=== PATIENT | male | born 1960 | race American Indian/Alaskan Native ===

== ENCOUNTER 2023-04-10 07:58 | Emergency (ER) | payer MEDICARE, OTHER ==
[2023-04-10] MEDS ORDERED: Sodium Chloride 0.9% 1,000 ML IV ONE ×3 (08:23→10:51)
[2023-04-10] MEDS ORDERED: Ondansetron 4 MG/2 ML SDV IVPUSH ONE (08:23)
[2023-04-10] MEDS ORDERED: Albuterol/Ipratropium 3.0-0.5 MG/3 ML Neb Soln NEB ONE (08:31)
[2023-04-10 08:56] LABS: BASOPHILS PERCENT AUTO 0.2 % (0.0-1.0); HEMATOCRIT 44.4 % (40.0-54.0); LYMPHOCYTES PERCENT AUTO 11.3 % (20.5-50.1); MEAN CORPUSCULAR HEMOGLOBIN 30.2 pg (27.0-34.0); MEAN CORPUSCULAR HGB CONC 33.8 g/dL (33.0-35.0); MEAN CORPUSCULAR VOLUME 89.3 fL (80-100); MONOCYTES PERCENT AUTO 3.6 % (2-8); NEUTROPHILS PERCENT AUTO 84.9 % (42.2-75.2); PLATELET COUNT,PLT 340 10^3/uL (150-450); RED BLOOD CELL COUNT 4.97 10^6/uL (4.6-6.2); WHITE BLOOD CELL COUNT,WBC 10.6 10^3/uL (5.0-10.0)
[2023-04-10 09:08] LABS: LACTIC ACID 2.9 mmol/L (0.4-2.0)
[2023-04-10 09:15] LABS: A/G RATIO 0.9; ALANINE AMINOTRANSFERASE,ALT 40 U/L (16-63); ALBUMIN 3.7 g/dL (3.4-5.0); ALKALINE PHOSPHATASE 131 U/L (46-116); ANION GAP 15.1 mEq/L (7-13); ASPARTATE AMNIOTRANSFERASE,AST 23 U/L (15-37); BILIRUBIN TOTAL 0.7 mg/dL (0.2-1.0); BLOOD UREA NITROGEN,BUN 10 mg/dL (7-18); BUN/CREATININE RATIO 7.6 (No establ ref range); C-REACTIVE PROTEIN 1.5 mg/dL (0.0-0.9); CALCIUM 9.1 mg/dL (8.5-10.1); CARBON DIOXIDE,CO2 27 mmol/L (21-32); CHLORIDE,CL 105 mmol/L (98-107); CREATININE 1.32 mg/dL (0.70-1.30); EST CRCL DRUG DOSING (CG) 60.21 mL/min; GLUCOSE RANDOM 130 mg/dL (70-99); LIPASE 30 U/L (73-393); MAGNESIUM 1.9 mg/dL (1.8-2.4); POTASSIUM,K 4.1 mmol/L (3.5-5.1); PROTEIN TOTAL,TP 7.9 g/dL (6.4-8.2); SODIUM,NA 143 mmol/L (136-145)
[2023-04-10 09:17] LABS: ESTIMATED GFR 60 mL/min (>=60); ETHANOL BLOOD MEDICAL < 3 mg/dL (0)
[2023-04-10 10:19] LABS: APPEARANCE,URINE CLEAR (CLEAR); BILIRUBIN,URINE NEGATIVE (NEGATIVE); COLOR,URINE YELLOW (YELLOW); GLUCOSE,URINE NEGATIVE (NEGATIVE); KETONES,URINE >=160 (NEGATIVE); LEUKOCYTE ESTERASE,URINE NEGATIVE (NEGATIVE); NITRITE,URINE NEGATIVE (NEGATIVE); OCCULT BLOOD,URINE NEGATIVE (NEGATIVE); PH,URINE 8.5 (5.0-9.0); PROTEIN,URINE NEGATIVE (NEGATIVE)
[2023-04-10] MEDS ORDERED: predniSONE 20 MG Tab PO ONE (10:20)
[2023-04-10 10:21] LABS: AMPHETAMINES,URINE NEGATIVE (NEGATIVE); BARBITURATES,URINE NEGATIVE (NEGATIVE); BENZODIAZEPINE,URINE NEGATIVE (NEGATIVE); MDMA (ECSTASY), URINE NEGATIVE (NEGATIVE); METHADONE,URINE NEGATIVE (NEGATIVE); METHAMPHETAMINES,URINE NEGATIVE (NEGATIVE); OPIATES,URINE NEGATIVE (NEGATIVE); OXYCODONE,URINE NEGATIVE (NEGATIVE); PHENCYCLIDINE,URINE NEGATIVE (NEGATIVE); TCA,URINE NEGATIVE (NEGATIVE)
== END 2023-04-10 11:43 | disposition home or self-care (01) ==
LOC: MERGE 07:58 → DL.ED 07:58
DX: E86.0 Dehydration (principal); J20.9 Acute bronchitis, unspecified; Z20.822 Contact with and (suspected) exposure to COVID-19; Z79.899 Other long term (current) drug therapy; Z79.82 Long term (current) use of aspirin; Z88.0 Allergy status to penicillin
CPT/HCPCS: 36415; 71046; 80053; 80305-QW; 80307; 81003; 82947; 83605; 83690; 83735; 84484; 85025; 86140; 87804; 93005; 94640; 96361; 96374; 99285-25; J2405; J7030; J7512; J7620-GY; U0002

== ENCOUNTER 2023-06-05 21:08 | Emergency (ER) | payer OTHER ==
[~2023-06-05 21:08] MED LIST: Iopamidol 755 Mg/ML 100 ML Bottle IV ONE; Sodium Chloride 0.9% 10 ML Syringe FLUSH PRN
[2023-06-05] MEDS ORDERED: fentaNYL 50 MCG/HR Transdermal Patch TRDERM SCH (21:15)
[2023-06-05 21:18] LABS: BASOPHILS PERCENT AUTO 0.1 % (0.0-1.0); EOSINOPHILS PERCENT AUTO 0.1 % (1.0-3.0); HEMATOCRIT 41.5 % (40.0-54.0); HEMOGLOBIN 14.1 g/dL (14.0-18.0); LYMPHOCYTES PERCENT AUTO 7.6 % (20.5-50.1); MEAN CORPUSCULAR HEMOGLOBIN 30.5 pg (27.0-34.0); MEAN CORPUSCULAR VOLUME 89.6 fL (80-100); MONOCYTES PERCENT AUTO 3.9 % (2-8); NEUTROPHILS PERCENT AUTO 88.3 % (42.2-75.2); PLATELET COUNT,PLT 356 10^3/uL (150-450); RED BLOOD CELL COUNT 4.63 10^6/uL (4.6-6.2); WHITE BLOOD CELL COUNT,WBC 16.1 10^3/uL (5.0-10.0)
[2023-06-05] MEDS ORDERED: Sodium Chloride 0.9% 1,000 ML IV ONE (21:26)
[2023-06-05] MEDS ORDERED: fentaNYL 100 MCG/2 ML SDV IVPUSH ONE ×3 (21:29→22:21)
[2023-06-05] MEDS ORDERED: Vancomycin 2 GM in Sodium Chloride 0.9% 500 ML IV ONE (21:32)
[2023-06-05 21:36] LABS: ALBUMIN 3.2 g/dL (3.4-5.0); ANION GAP 16.9 mEq/L (7-13); BILIRUBIN TOTAL 0.4 mg/dL (0.2-1.0); BUN/CREATININE RATIO 10.2 (No establ ref range); CALCIUM 8.7 mg/dL (8.5-10.1); CREATININE 1.08 mg/dL (0.70-1.30); EST CRCL DRUG DOSING (CG) 73.6 mL/min; POTASSIUM,K 3.9 mmol/L (3.5-5.1); PROTEIN TOTAL,TP 6.8 g/dL (6.4-8.2)
[2023-06-05 21:45] LABS: A/G RATIO 0.89
[2023-06-05 21:46] LABS: LACTIC ACID 2.1 mmol/L (0.4-2.0)
[2023-06-05] MEDS ORDERED: Morphine 2 MG/ML SYRINGE IVPUSH ONE (23:24)
== END 2023-06-06 00:49 ==
LOC: DL.ED 21:08
DX: K80.60 Calculus of gallbladder and bile duct with cholecystitis, unspecified, without obstruction (principal); Z88.0 Allergy status to penicillin; Z79.82 Long term (current) use of aspirin; Z79.899 Other long term (current) drug therapy
CPT/HCPCS: 36415; 71260; 74177; 80053; 83605; 83690; 84145; 84484; 85025; 87040; 93005; 96365; 96366; 96375; 96376; 99285; J2270; J3010; J3370; J7030; J7040; Q9967; J3490